=== PATIENT | female | born 1995 ===

== ENCOUNTER 2018-03-17 11:26 | Emergency (ER) | payer MEDICARE ==
[2018-03-17 11:40] VITALS: BMI 43.2
[2018-03-17 11:44] VITALS: PULSE 80; TEMP 98.5
[2018-03-17] MEDS ORDERED: Bacitracin 500 Units/gm Oint Foilpak UD TOP ONE (12:06)
[2018-03-17] MEDS ORDERED: Bacitracin 500 Units/gm Oint Foilpak UD ONE (12:13)
--- NOTE | 2018-03-17 12:26 | C.PDOC ---
History Of Present Illness 23 y/o female comes in to ED wanting to get a scratch on her left forearm checked. 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 Patient states she is up to date with tetanus and hepatitis B vaccinations. She has no other complaints at this time. Time Seen by Provider: 03/17/18 11:50 Chief Complaint (Nursing): Medical Clearance History Per: Patient Onset/Duration Of Symptoms: Days Current Symptoms Are (Timing): Still Present Past Medical History Reviewed: Historical Data, Nursing Documentation, Vital Signs Vital Signs: Last Vital Signs Temp 98.5 F 03/17/18 11:40 Pulse 80 03/17/18 11:40 Resp 18 03/17/18 11:40 BP 117/67 03/17/18 11:40 Pulse Ox 99 03/17/18 11:40 Family History: States: No Known Family Hx - Social History Hx Alcohol Use: No Hx Substance Use: No - Immunization History Hx Tetanus Toxoid Vaccination: No Hx Influenza Vaccination: No Hx Pneumococcal Vaccination: No Review Of Systems Constitutional: Negative for: Fever, Chills ENT: Negative for: Nose Congestion Cardiovascular: Negative for: Chest Pain Respiratory: Negative for: Cough, Shortness of Breath Gastrointestinal: Negative for: Nausea, Vomiting, Abdominal Pain Skin: Positive for: Other (Scratch on left forearm). Negative for: Rash Physical Exam - Physical Exam Appears: Non-toxic, No Acute Distress Skin: Warm, Dry, Other (3cm well-healing scratch on left mid- posterior portion of forearm, no signs of infection) Extremity: Normal ROM, No Tenderness, No Swelling Extremity: Bilateral: Normal ROM Pulses: Left Radial: Normal Neurological/Psych: Oriented x3, Normal Speech, Normal Cognition ED Course And Treatment O2 Sat by Pulse Oximetry: 99 (RA) Pulse Ox Interpretation: Normal Medical Decision Making Medical Decision Making: Bacitracin applied on affected area. Disposition Counseled Patient/Family Regarding: Diagnosis, Need For Followup, Rx Given - Disposition Referrals: [facility] [Outside] Disposition: HOME/ ROUTINE Disposition Time: 12:24 Condition: GOOD Additional Instructions: Keep scratch clean and dry. Apply bacitracin 2 times a day. Return to ER for any signs of infection such as redness, pus, fever. Prescriptions: Bacitracin OINT 1 applic TOP BID #1 tube Instructions: Wound Care (DC) Forms: [employer] ([place] Citizen), General Discharge Instructions - Clinical Impression Clinical Impression: Excoriation of forearm - PA / BORDER PATROL AGENT / Resident Statement MD/DO has reviewed & agrees with the documentation as recorded. - Scribe Statement The provider has reviewed the documentation as recorded by the Scribe Radha Wen All medical record entries made by the Scribe were at my direction and personally dictated by me. I have reviewed the chart and agree that the record accurately reflects my personal performance of the history, physical exam, medical decision making, and the department course for this patient. I have also personally directed, reviewed, and agree with the discharge instructions and disposition.
[2018-03-17 12:28] VITALS: BP 126/92; RESP 16
[2018-03-17 13:13] VITALS: O2SAT 99
== END 2018-03-17 12:34 | disposition home or self-care (01) ==
LOC: C.ER 11:26
DX: S50.812A Abrasion of left forearm, initial encounter (principal); X58.XXXA Exposure to other specified factors, initial encounter; Y93.F9 Activity, other caregiving